=== PATIENT | female | born 1950 | race Caucasian/White ===

== ENCOUNTER 2019-02-20 09:45 | Outpatient (CLI) | payer OTHER ==
--- NOTE | 2019-02-20 09:58 | RAD ---
EXAM: Chest 2 views: HISTORY: Cough COMPARISON: None. FINDINGS: There is a normal-sized cardiomediastinal silhouette. There is an area of developing consolidation in the inferior aspect of the right upper lobe. The bones are unremarkable. IMPRESSION: Right upper lobe pneumonia.
== END 2019-02-20 09:46 | disposition home or self-care (01) ==
LOC: BICRAD 09:45
PROVIDERS: ATTEND Family Medicine
DX: R05 Cough (principal); J18.1 Lobar pneumonia, unspecified organism
CPT/HCPCS: 71046

== ENCOUNTER 2020-04-13 13:45 | Outpatient (CLI) | payer OTHER | END 2020-04-13 13:46 | disposition home or self-care (01) | LOC: BICMAMMO 13:45 | DX: Z12.31 Encounter for screening mammogram for malignant neoplasm of breast (principal) | CPT/HCPCS: 77063; 77067 ==

== ENCOUNTER 2025-01-09 08:47 | Outpatient (CLI) | payer OTHER, SELFPAY | END 2025-01-09 08:48 | disposition home or self-care (01) | LOC: BICCT 08:47 | PROVIDERS: ATTEND Internal Medicine | DX: Z13.6 Encounter for screening for cardiovascular disorders (principal); E78.00 Pure hypercholesterolemia, unspecified | CPT/HCPCS: 75571 ==